=== PATIENT | male | born 1985 | race Caucasian/White ===

== ENCOUNTER → 2016-05-07 | Outpatient (CLI) | payer OTHER ==
[~2016-05-07] VITALS: Ht 180.3 cm; Wt 83.5 kg
[~2016-05-07] MED LIST: BACLOFEN 10MG T10 MG PO; IBUPROFEN 200200 M1 PO; MEDROLDOSEPACK PO
--- NOTE | ~2016-05-07 | HPC ---
[facility] [place] [address] PAIN MANAGEMENT CONSULTATION Name: RAFAELA MASON Room #: REG CLDenise M..#: [id number] Admission: 05/07/16 Attend Phys: Wayne Theodore DO Discharge: Date of : 89 Report #: [id number] THIS REPORT FOR: //name// CC: Dr. Aguilar with [facility] physician/PCP Wayne Theodore REFERRING PHYSICIAN: Dr. Aguilar with the [facility]. CHIEF COMPLAINT: Neck pain. HISTORY OF PRESENT ILLNESS: As you know, the patient is a 30-year-old male who has been experiencing longstanding neck pain and upper thoracic pain began according to the patient in March 2016. The patient states that he has been advised that his pain is due to "jumping out of airplanes." The patient has been referred to our clinic by the [facility] as they were unable to see the patient in a timely fashion at their pain service at the [facility]. He indicates today the pain is periodic, describes the pain as sharp, places current pain score 4/10, daily average at 6/10, worst the pain has been is 9/10. The patient states that turning his head and looking down exacerbates symptoms. His pain is improved with "popping his neck." He has been referred to our clinic for evaluation for ongoing neck pain. PAST MEDICAL HISTORY: None. PAST SURGICAL HISTORY: None. SOCIAL HISTORY: The patient denies tobacco, IV or illicit drug use. Admits to one alcoholic beverage per day. 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 He is unaccompanied today. REVIEW OF SYSTEMS: Positive for hearing loss with tinnitus and chronic neck pain. All other review of systems negative per 12-point review of systems other than those listed in history of present illness. Impact score 30/70 indicating [id number] interference of daily activities secondary to pain. ALLERGIES: No known drug allergies. CURRENT MEDICATIONS: Ibuprofen 200 mg 2 tabs up to twice a day. IMAGING DATA: MRI, cervical spine obtained on 01/02/2016 shows slight straightening of the lordotic curvature, mild spondylosis noted at C4 through C6, mild old compression deformities seen at these levels, minimal degenerative disk disease, no focal disk protrusions and no sore central or foraminal stenosis. [address] [address] PAIN MANAGEMENT CONSULTATION Name: RAFAELA MASON [id number] Admission: 05/07/16 Attend Phys: Wayne Theodore DO Discharge: Date of : 89 Report #: [id number] PHYSICAL EXAMINATION: VITAL SIGNS: Blood pressure 135/85, pulse 73 and respiratory rate 16 and unlabored. The patient is 100% on room air. Height 5 feet 11 inches tall, weight 184.6 pounds and BMI calculated 25.8. GENERAL: Well-developed, well-nourished, well-hydrated 30-year-old male appearing his stated age. He is in no acute distress, awake, alert and oriented times 3. Current pain score is rated at 4/10. HEENT: Normocephalic and atraumatic. Pupils equal, round and reactive to light. Extraocular muscles are intact. Sclerae nonicteric without injection. NEUROLOGICAL: Cranial nerves 2 through 12 grossly intact. Speech fluent. The patient deemed an excellent historian. LUNGS: Clear. No wheeze, rhonchi or rales. CARDIOVASCULAR: Regular. No appreciable gallop or rub. ABDOMEN: Soft, nontender and nondistended. Normal active bowel sounds. EXTREMITIES: Show no clubbing, no cyanosis and no edema. MUSCULOSKELETAL: There is palpatory tenderness over the paraspinal musculature of the cervical and upper thoracic region. No specific trigger points, multiple tender points. Spurling's test negative. Upper extremity strength equal and symmetrical 5/5, intact to light touch from C5 through T1 dermatomes. Deep tendon reflexes are symmetrical at biceps, brachioradialis and triceps. Cervical provocation testing including forward flexion, rotation and lateral flexion cause mild intensification of pain in nondermatomal distribution. Extension of the cervical spine improves pain. ASSESSMENT: 1. Myofascial pain. 2. Muscle spasm of the cervical spine. 3. Mild cervical spondylosis. 4. Chronic intractable pain. PLAN: 1. The patient has been referred to our service by his primary care physician at the [facility], Dr. Aguilar and Dr. Laura Huff for evaluation for chronic neck pain. Based on the physical exam history, the patient has provided, the description the patient uses in regards to pain as well as the nondermatomal distribution of symptoms, likely source of the patient's pain is myofascial in origin. I have reviewed the MRI the patient brought with him today. It shows mild changes at C4 through C6, which is typically age-related, 30-year-old findings. There are no focal disk protrusions and no herniations. There is no central canal or neural foraminal stenosis. Thus, precluding the patient from the need of any intervention or treatment such as requested cervical epidural injection. The findings would indicate the patient is suffering from mild myofascial pain of the cervical region due to the straightening of the lordotic curvature of the neck. The findings on physical exam also correlate with myofascial pain. This patient's experience of pain is [address] [place] [address] PAIN MANAGEMENT CONSULTATION Name: RAFAELA MASON Room #: REG FRANSICODenise Kamara.#: [id number] Admission: 05/07/16 Attend Phys: Wayne Theodore DO Discharge: Date of : 89 Report #: [id number] increased with forward flexion of the cervical spine thus placing the musculature of the cervical region in the more strain. It is also noted with rotation, lateral flexion of the cervical spine also causing increased strain in the muscles of the cervical region. Extension of the cervical spine improves the patient's pain nearly completely, which would again prove myofascial symptoms. We discussed with the patient the treatment options for this pain generator. The following was discussed. The patient and I discussed the necessity of beginning physical therapy with traction techniques. Myofascial release techniques also will be quite beneficial. Apparently, the patient does have an appointment on 06/18/2016 with physical therapy. I have recommended the patient contact his PCP and have this timing pushed forward. Physical therapy, stretching exercises are going to be the gold standard of treatment in this patient's case. It will be the option that will provide the patient with the best more prolonged improvement in symptoms. Please indicate today that interventional treatments will be of little or no benefit in this patient's case as the findings are normal. We discussed the possibility of adding muscle relaxant that has low sedation potential that in conjunction with a nonsteroidal anti-inflammatory would be the medication of choice for treatment in this patient's case. Escalating dosing from here would not be indicated. We will make the changes in his medications today. These medications in conjunction with physical therapy would be sufficient to treat in the patient's symptoms. We did discuss the requested epidural injection under fluoroscopic guidance as well as intra-articular facet injections. These are not well indicated in this patient's case. 2. The patient will be started on baclofen 10 mg dose 1 tab p.o. t.i.d. I have given the patient #90 tablets. The patient was advised to take this medication when he is not driving or operating heavy equipment or trying to concentrate on his work duties that he was to be used outside of the workplace as it could lead to some sedation and some dysphoric effects. The patient will initiate the medication at his earliest convenience and utilized it on a p.r.n. basis for muscle spasming. 3. The patient will be provided a Medrol Dosepak for the anti-inflammatory effects. He will start the Medrol Dosepak as directed completing the medication in 6 days. After he completes the Medrol Dosepak, he is to restart his ibuprofen as needed for baseline pain control. 4. The patient and I discussed changes in the ergonomics specifically around his workplace and work station. He will need to adjust his monitor to place the monitor at mid eye level with his head in a neutral position. This will decrease the exacerbation. He notes with forward flexion of the cervical spine, the source of the patient's symptoms is this forward flexed position for long periods of time working on his work station at his current job. Changes in the positioning on the monitor will improve the patient's symptoms and relieve his myofascial symptoms due to chronic forward flexion of the cervical region exacerbating cervical musculature. 5. The patient and I did discuss the possibility of utilizing acupuncture therapy and massage therapy in the area. We will defer the physical medicine [facility] [address] [place] [address] PAIN MANAGEMENT CONSULTATION Name: RAFAELA MASON Room #: REG CLDenise Malcolm#: [id number] Admission: 05/07/16 Attend Phys: Wayne Theodore DO Discharge: Date of : 89 Report #: [id number] rehabilitation [facility]. He needs to contact his PCP having the scheduled appointment to move forward, so that we can begin to obtain efficacy with this procedure and treatment options. 6. We wish to thank the referring team for the opportunity to see the patient in consultation and please do indicate today. He will not need interventional treatments. The findings on his MRI are normal for a 30-year-old male who has been active. The findings of mild spondylosis of the cervical spine are present but contribute little to the patient's symptoms. The symptoms he is experiencing at this time are myofascial in origin, mainly due to chronic forward flexion of the cervical spine in his work space. Again, we wish to thank you for the opportunity to see the patient in consultation. <ELECTRONICALLY SIGNED> By: Wayne Theodore DO 05/13/16 0701 [id number] Wayne Theodore DO /nt
[2016-05-07 13:52] VITALS: BP 135/85
== END | disposition home or self-care (01) ==
LOC: PAIN 07:13
DX: M79.1 Myalgia (principal); M47.892 Other spondylosis, cervical region; G89.29 Other chronic pain

== ENCOUNTER → 2016-05-28 | Outpatient (CLI) | payer OTHER ==
[~2016-05-28] VITALS: Ht 180.3 cm; Wt 83.0 kg
--- NOTE | ~2016-05-28 | HPC ---
[facility] [address] [place] [address] PAIN MANAGEMENT CONSULTATION Name: RAFAELA MASON Room #: REG [facility]..#: [id number] Admission: 05/28/16 Attend Phys: Wayne Theodore DO Discharge: Date of : 89 Report #: [id number] THIS REPORT FOR: //name// CC: Dr. Aguilar at [facility] physician/PCP Wayne Theodore DATE OF SERVICE: 05/28/2016 CHIEF COMPLAINT: Neck pain. HISTORY OF PRESENT ILLNESS: As you know, the patient is a 30-year-old male, returning in followup visit stating no improvement in symptoms with medication management for his suspected cervical radicular symptoms. He returns today requesting a cervical epidural injection requested by his primary care physician. He is reporting pain score of around 2-5/10. Pain is sharp and aching in sensation, exacerbated with turning and looking up or down, improves with a "popping his neck." He returns today for this epidural injection. ALLERGIES: No known drug allergies. CURRENT MEDICATIONS: Baclofen 10 mg 3 times a day, ibuprofen 400 mg 3 times a day. SOCIAL HISTORY: The patient denies tobacco, IV or illicit drug use. Admits to one alcoholic beverage per day. 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 PHYSICAL EXAMINATION: VITAL SIGNS: Blood pressure 140/77, pulse 69, respiratory rate 16, unlabored, the patient 96% on room air. Height 5 feet 11 inches tall, weight 183 pounds, BMI calculated 25.5. GENERAL: Well-developed, well-nourished, well-hydrated 30-year-old male appearing stated age. Pain is rated at around 2-5/10. HEENT: Normocephalic, atraumatic. Pupils are equal, round and reactive to light. EXTREMITIES: Show no clubbing, no cyanosis, no edema. MUSCULOSKELETAL: Spurling's test is negative. Upper extremity strength is equal and symmetrical 5/5, intact to light touch from C5-T1 dermatomes. Deep tendon reflexes are symmetrical at biceps, brachioradialis and triceps. ASSESSMENT: 1. Chronic neck pain. 2. Myofascial pain. 3. Mild cervical spondylosis. 4. Chronic intractable pain. [address] [address] PAIN MANAGEMENT CONSULTATION Name: RAFAELA MASON Room #: REG [facility] Gold#: [id number] Admission: 05/28/16 Attend Phys: Wayne Tehodore DO Discharge: Date of : 89 Report #: [id number] PLAN: 1. The patient has returned today in followup visit indicating that medication management has been unsuccessful at alleviating symptoms. He is placing his pain score somewhere between 2-5/10. He [facility] to [facility] epidural injection. He has requested this injection to be provided today in hopes of improving pain. I have advised the patient of the risks and benefits of the procedure. These risks include but are not necessarily limited to bleeding, bruising, infection, worsening pain, no relief of pain, also risk of temporary or permanent muscle weakness, temporary or permanent nerve damage, possible paralysis and . The patient states understood and wished to proceed. 2. No medication changes were made at today's visit. The patient will continue current medical therapy as previously prescribed. 3. We will see the patient back in followup visit in approximately 3 weeks. At that time, review the efficacy of today's cervical epidural injection and determine if a repeat injection would be warranted. PROCEDURE NOTE DESCRIPTION OF PROCEDURE: Cervical epidural injection under fluoroscopic guidance. This is the first procedure of the first series that the patient is undergoing. After obtaining written consent, the patient was taken back to the fluoroscopy suite and placed in a prone position with separate pillows under chest and forehead to decrease cervical lordosis. The skin overlying the cervical area was prepped and draped in an aseptic fashion. The C7-T1 vertebral interspace was identified by AP fluoroscopy. The skin and subcutaneous tissue overlying the target site of injection was anesthetized using 3 mL of 1% lidocaine. A 20-gauge 3-1/2 inch Tuohy needle was advanced under fluoroscopic guidance toward the epidural space using a midline approach. The epidural space was identified using a loss of resistance to air technique. After negative aspiration for heme or cerebrospinal fluid, a total of 1 mL of Omnipaque was injected. A cervical epidurogram was confirmed using AP and oblique fluoroscopy. After negative aspiration for heme or cerebrospinal fluid, 5 mL of solution containing 2 mL 40 mg per mL, 80 mg total triamcinolone, 3 mL lidocaine 1% was injected in increments. Contrast spread was noted at posterior epidural space. The needle was then retracted approximately alf and the needle track was flushed with 1 mL of 1% lidocaine. There were no apparent new sensory deficits in the upper extremities present following the procedure. A sterile bandage was placed over the injection site. The heart rate, pulse oximetry and blood pressure were continuously monitored [address] [address] PAIN MANAGEMENT CONSULTATION Name: RAFAELA MASON Room #: REG CLDenise KamaraGabriela#: [id number] Admission: 05/28/16 Attend Phys: Wayne Theodore DO Discharge: Date of : 89 Report #: [id number] after the procedure. There were no apparent complications. The patient tolerated the procedure well and was carefully escorted in the recovery room in stable condition. After meeting discharge criteria, the patient was discharged home. <ELECTRONICALLY SIGNED> By: Wayne Theodore DO 06/10/16 0805 [id number] Wayne Theodore DO /nt
[2016-05-28 13:00] VITALS: BP 140/77
== END | disposition home or self-care (01) ==
LOC: PAIN 06:56
DX: M47.892 Other spondylosis, cervical region (principal); M79.1 Myalgia; G89.29 Other chronic pain